=== PATIENT | male | born 1955 | race Caucasian/White ===

== ENCOUNTER 2017-01-25 19:04 | Inpatient (IN) | payer OTHER ==
[~2017-01-25] VITALS: Ht 186.7 cm; Wt 82.6 kg
[2017-01-25] MEDS ORDERED: SOD CHLORIDE 0.9% 1,000 ML IV STA (19:28)
[2017-01-25 19:39] LABS: ADD SCAN DIFF NO
[2017-01-25 19:41] LABS: ABNORMAL IP MESSAGE 1; BASOPHILS % 0.1 % (0.0-2.0); EOSINOPHILS # 0.5 10^3/ul (0.0-0.5); EOSINOPHILS % 3.8 % (0.0-7.0); HEMATOCRIT 12.2 % (42.0-52.0); LYMPHOCYTES % 24.3 % (15.0-51.0); MEAN CORPUSCULAR HEMOGLOBIN 27.6 pg (29.0-33.0); MEAN CORPUSCULAR HGB CONC 30.3 g/dl (32.0-37.0); MEAN PLATELET VOLUME 9.6 fl (7.4-10.4); MONOCYTE # 0.8 10^3/ul (0.3-0.9); MONOCYTES % 6.9 % (0.0-11.0); NEUTROPHIL # 7.7 10^3/ul (1.6-7.5); NEUTROPHILS % 63.3 % (39.0-77.0); NUCLEATED RED BLOOD CELLS # 0.1 10^3/ul (0.0-0.0); NUCLEATED RED BLOOD CELLS% 0.7 /100WBC (0.0-0.0); PLATELET COUNT 401 10^3/UL (140-415); RED BLOOD COUNT 1.34 10^6/ul (4.70-6.10); RED CELL DISTRIBUTION WIDTH 16.2 % (11.5-14.5); WHITE BLOOD COUNT 12.2 10^3/ul (4.8-10.8)
[2017-01-25 19:51] LABS: ALANINE AMINOTRANSFERASE 34 IU/L (13-69); ALBUMIN 3.7 g/dl (3.3-4.9); ALBUMIN/GLOBULIN RATIO 1.68; ALKALINE PHOSPHATASE 54 IU/L (42-121); ANION GAP 12 (8-16); ASPARTATE AMINO TRANSFERASE 18 IU/L (15-46); BLOOD UREA NITROGEN 43 mg/dl (7-20); CALCIUM 8.2 mg/dl (8.4-10.2); CARBON DIOXIDE 19 mmol/L (21-31); CHLORIDE 108 mmol/L (97-110); CREATININE 1.42 mg/dl (0.61-1.24); GLUCOSE 101 mg/dl (70-220); SODIUM 134 mmol/L (135-144); TOTAL PROTEIN 5.9 g/dl (6.1-8.1)
[2017-01-25 19:57] LABS: INR 1.17; PT RATIO 1.2
[2017-01-25 19:58] LABS: HEMOGLOBIN 3.7 g/dl (14.0-18.0); PARTIAL THROMBOPLASTIN TIME 31.1 Sec (25.0-35.0)
[2017-01-25 20:03] LABS: B-TYPE NATRIURETIC PEPTIDE 1080 PG/ML (0-125)
[2017-01-25 20:06] LABS: TROPONIN-I < 0.012 ng/ml (0.00-0.12)
--- NOTE | 2017-01-25 20:10 | RADRPT ---
PROCEDURE: XR Chest. CLINICAL INDICATION: Chest pain. Upper GI bleed. TECHNIQUE: Single frontal view. COMPARISON: None. FINDINGS: There is mild left basilar atelectasis. The left inferior lateral lung is not included on the image . The visualized portions of the lungs are otherwise clear. The heart size is normal. There is no pleural effusion. There is no pneumothorax. IMPRESSION: 1. Limited study as described above. 2. Mild left basilar atelectasis. RPTAT: QQ .Cecil Mcgee MD, MD Date Time Electronically viewed and signed by .Cecil Mcgee MD, on 01/25/2017 20:10 .R/
[2017-01-25 20:25] LABS: PLATELET ESTIMATE PLT APPEAR ADEQUATE
--- NOTE | 2017-01-25 21:51 | ERA ---
ER Documentation Chief Complaint Date/Time DATE: 01/25/17 TIME: 21:41 Chief Complaint SOB and palpitations today HPI 61-year-old man states he has been feeling weak for the last 4-5 days and developed gradual onset shortness of breath over the same duration. He developed palpitations today which lasted for a few minutes so he came here for evaluation. Patient states his stools have been dark recently but denies abdominal pain, no chest pain, no fevers or chills, no blood per rectum, no vomiting or diarrhea. Patient denies recent travel or antibiotic use. ROS All systems reviewed and are negative except as per history of present illness. PMhx/Soc History of alcoholism, last drink 9 months ago, atrial fibrillation History of Surgery: No Anesthesia Reaction: No Hx Neurological Disorder: No Hx Respiratory Disorders: No Hx Cardiac Disorders: Yes (HTN, HYPERLIPIDS) Hx Psychiatric Problems: Yes (DEPRESSION) Hx Miscellaneous Medical Probl: No Hx Alcohol Use: No (FORMER) Hx Substance Use: No Hx Tobacco Use: Yes (PK/DAY) Smoking Status: Current every day smoker FmHx No family history of early coronary artery disease or sudden cardiac . Family History: No diabetes Physical Exam Vitals Vital Signs Date Time Temp Pulse Resp B/P Pulse Ox O2 Delivery O2 Flow Rate FiO2 01/25/17 21:10 98.0 78 17 77/43 100 01/25/17 20:55 98.0 79 18 78/37 100 01/25/17 19:12 98.2 59 18 80/47 82 Physical Exam GENERAL: Well-developed, appears dehydrated, nontoxic in appearance, afebrile HEENT: Dry mucous membranes, pale conjunctiva, no cervical spine deformity, no jaundice or icterus NEURO: Alert and oriented 3, cranial nerves II through XII intact bilaterally, pupils equal round reactive to light, no focal deficits or facial asymmetry, sensation intact distally Strength 5/5 in upper and lower extremities bilaterally CARDIAC: Regular rate and rhythm, no murmurs rubs or gallops LUNGS: Clear bilaterally no wheezing crackles or stridor ABDOMEN: Soft nontender, no guarding, no rigidity, no rebound, no psoas sign no obturator sign. SKIN: Warm and dry to touch, no abrasions, contusions, or hematomas, no lacerations, no ecchymosis, no target lesions, and without ulcers EXTREMITIES: No clubbing cyanosis or edema, calves are bilaterally symmetrical, no Homans sign, no popliteal cord sign. Distal pulses equal and bilateral PSYCH: Normal affect without agitation or irritability Result Diagram: 01/25/17192401/25/171924 Results 24 hrs Laboratory Tests Test 01/25/17 19:25 White Blood Count 12.210^3/ul Red Blood Count 1.3410^6/ul Hemoglobin 3.7g/dl Hematocrit 12.2% Mean Corpuscular Volume 91.0fl Mean Corpuscular Hemoglobin 27.6pg Mean Corpuscular Hemoglobin Concent 30.3g/dl Red Cell Distribution Width 16.2% Platelet Count 45970^3/UL Mean Platelet Volume 9.6fl Neutrophils % 63.3% Lymphocytes % 24.3% Monocytes % 6.9% Eosinophils % 3.8% Basophils % 0.1% Nucleated Red Blood Cells % 0.7/100WBC Neutrophils # 7.710^3/ul Lymphocytes # 3.010^3/ul Monocytes # 0.810^3/ul Eosinophils # 0.510^3/ul Basophils # 0.010^3/ul Nucleated Red Blood Cells # 0.110^3/ul Differential Comment AUTO w/SCAN Platelet Estimate PLT APPEAR ADEQUATE Prothrombin Time 15.0Sec Prothrombin Time Ratio 1.2 INR International Normalized Ratio 1.17 Activated Partial Thromboplast Time 31.1Sec Sodium Level 134mmol/L Potassium Level 5.0mmol/L Chloride Level 108mmol/L Carbon Dioxide Level 19mmol/L Anion Gap 12 Blood Urea Nitrogen 43mg/dl Creatinine 1.42mg/dl Glucose Level 101mg/dl Calcium Level 8.2mg/dl Total Bilirubin 0.0mg/dl Direct Bilirubin 0.00mg/dl Indirect Bilirubin 0.0mg/dl Aspartate Amino Transf (AST/SGOT) 18IU/L Alanine Aminotransferase (ALT/SGPT) 34IU/L Alkaline Phosphatase 54IU/L Troponin I < 0.012ng/ml B-Type Natriuretic Peptide 1080PG/ML Total Protein 5.9g/dl Albumin 3.7g/dl Globulin 2.20g/dl Albumin/Globulin Ratio 1.68 Lipase 219U/L Current Medications Medications (Trade) Dose Ordered Sig/Dina Route PRN Reason Start Time Stop Time Status Last Admin Dose Admin Sodium Chloride (NS) 1,000 ml @ 1,000 mls/hr Q1H STAT IV 01/25/17 19:28 01/25/17 20:27 DC 01/25/17 19:36 Procedures/MDM IV line was established patient was placed on alarm security or surveillance monitor rhythm strip revealed a sinus rhythm at about 80 bpm with upright P and T waves. Patient was afebrile but hypotensive and dehydrated initially. I ordered 2 L normal saline intravenously for initial hypotension with a systolic blood pressure of 80 mmHg. Also suspected severe anemia so I ordered type and screen and transfusion of 2 units PRBCs IV over 4 hours. EKG performed, read by me: 81 bpm, normal sinus rhythm, normal axis, no acute ST segment changes, narrow QRS complex, with good R-wave progression in precordial leads. One AP view of the chest performed, read by me reveals no acute infiltrates, normal mediastinum, sharp costophrenic and cardiac borders, no air under the diaphragm. Otherwise unremarkable chest x-ray. CBC revealed severe anemia with a hemoglobin of 3.7, electrolytes revealed dehydration with a BUN/creatinine of 43/1.4, liver function tests were normal, troponin was negative. BNP is elevated at about 1000 and, nonspecific. Given the level of anemia and initial hypotension I ordered emergent transfusion with O- blood. Patient gave both verbal and written consent. Critical Care: Time: 35 minutes, this was time separate from other billable procedures. Treatments/Evaluations: Close monitoring and treatment of unstable vital signs, cardiorespiratory, and neurologic status, while maintaining tight balance of fluid, respiratory, and cardiac interventions. Patient's mental status remains normal he has no complaints at this time and his blood pressure has improved. He will be admitted to telemetry setting for continued IV blood transfusion and possible GI consultation. Departure Diagnosis: Primary Impression: Severe anemia Additional Impressions: Dehydration Gastrointestinal hemorrhage associated with acute gastritis Hypotension Qualified Code: I95.9 - Hypotension, unspecified hypotension type Condition: Serious JANETT CHAPPELL MD Jan 25, 2017 21:51
[2017-01-25] MEDS ORDERED: SOD CHLORIDE 0.9% 1,000 ML IV ONE (23:00)
[2017-01-25] MEDS ORDERED: DIPHENHYDRAMINE 50 MG CAP PO ONE (23:00)
[2017-01-25] MEDS ORDERED: LORAZEPAM 2 MG INJ IV ONE (23:30)
[2017-01-26 03:50] VITALS: TEMP 98.1
[2017-01-26] MEDS ORDERED: DEXTROSE 5%-0.45% NACL 1,000 ML IV SCH (07:32)
[2017-01-26 07:52] LABS: ADD SCAN DIFF NO
[2017-01-26 07:56] LABS: ABNORMAL IP MESSAGE 1; HEMATOCRIT 19.1 % (42.0-52.0); MEAN CORPUSCULAR HEMOGLOBIN 28.6 pg (29.0-33.0); MEAN CORPUSCULAR HGB CONC 32.5 g/dl (32.0-37.0); MEAN PLATELET VOLUME 9.9 fl (7.4-10.4); PLATELET COUNT 334 10^3/UL (140-415); RED BLOOD COUNT 2.17 10^6/ul (4.70-6.10); RED CELL DISTRIBUTION WIDTH 16.5 % (11.5-14.5)
[2017-01-26] MEDS ORDERED: ONDANSETRON 4 MG INJ IV PRN (08:00)
[2017-01-26] MEDS ORDERED: morphine 2 MG INJ IV PRN (08:00)
[2017-01-26] MEDS ORDERED: NACL 0.9% 3 ML SYG IV SCH (08:00)
[2017-01-26] MEDS ORDERED: DOCUSATE SODIUM 100 MG CAP PO PRN (08:00)
[2017-01-26] MEDS ORDERED: HYDROCODONE/APAP (5/325) TAB PO PRN (08:00)
[2017-01-26] MEDS ORDERED: ACETAMINOPHEN 325 MG TAB PO PRN (08:00)
[2017-01-26] MEDS ORDERED: ZOLPIDEM 5 MG TAB PO PRN (08:00)
[2017-01-26 08:08] LABS: HEMOGLOBIN 6.2 g/dl (14.0-18.0)
[2017-01-26] MEDS ORDERED: SOD CHLORIDE 0.9% 250 ML IV* ONE (08:35)
[2017-01-26] MEDS ORDERED: FUROSEMIDE 40 MG INJ IV SCH (09:00)
[2017-01-26] MEDS: PANTOPRAZOLE 40 MG INJ IV SCH ×2 (09:45→20:27)
[2017-01-26 10:16] LABS: ANISOCYTOSIS 2+; BASOPHIL # 0.1 10^3/ul (0.0-0.1); EOSINOPHILS # 0.3 10^3/ul (0.0-0.5); LYMPHOCYTES # 3.3 10^3/ul (0.8-2.9); MICROCYTOSIS 1+; MONOCYTE # 0.4 10^3/ul (0.3-0.9); NEUTROPHIL # 6.8 10^3/ul (1.6-7.5); PLATELET ESTIMATE PLT APPEAR ADEQUATE; POLYCHROMASIA 3+
[2017-01-26 12:11] LABS: ADD SCAN DIFF NO
[2017-01-26 12:13] LABS: BASOPHIL # 0.1 10^3/ul (0.0-0.1); BASOPHILS % 0.5 % (0.0-2.0); EOSINOPHILS # 0.4 10^3/ul (0.0-0.5); HEMATOCRIT 22.4 % (42.0-52.0); HEMOGLOBIN 7.5 g/dl (14.0-18.0); LYMPHOCYTES # 2.3 10^3/ul (0.8-2.9); LYMPHOCYTES % 24.1 % (15.0-51.0); MEAN CORPUSCULAR HEMOGLOBIN 29.2 pg (29.0-33.0); MEAN CORPUSCULAR HGB CONC 33.5 g/dl (32.0-37.0); MEAN CORPUSCULAR VOLUME 87.2 fl (82.0-101.0); MEAN PLATELET VOLUME 9.9 fl (7.4-10.4); MONOCYTE # 0.7 10^3/ul (0.3-0.9); MONOCYTES % 7.1 % (0.0-11.0); NEUTROPHILS % 62.8 % (39.0-77.0); NUCLEATED RED BLOOD CELLS # 0.1 10^3/ul (0.0-0.0); NUCLEATED RED BLOOD CELLS% 0.9 /100WBC (0.0-0.0); PLATELET COUNT 353 10^3/UL (140-415); RED BLOOD COUNT 2.57 10^6/ul (4.70-6.10); RED CELL DISTRIBUTION WIDTH 16.4 % (11.5-14.5); WHITE BLOOD COUNT 9.6 10^3/ul (4.8-10.8)
[2017-01-26 12:25] LABS: IRON 30 ug/dl (35-150)
[2017-01-26 12:34] LABS: TOTAL IRON BINDING CAPACITY 438 ug/dl (241-421)
[2017-01-26 13:15] VITALS: BP 116/60; PULSE 80; RESP 19
[2017-01-26 13:48] LABS: HEMATOCRIT 24.2 % (42.0-52.0); HEMOGLOBIN 7.8 g/dl (14.0-18.0)
[2017-01-26 13:57] LABS: FOLATE 8.4 ng/ml (2.8-20.0)
[2017-01-26 14:24] VITALS: Ht 186.7 cm; Wt 82.6 kg
[2017-01-26] MEDS ORDERED: RIVA20TA PO (14:44)
[2017-01-26] MEDS ORDERED: ASPI-664 PO (14:44)
[2017-01-26] MEDS ORDERED: SPIR25TA PO (14:44)
[2017-01-26] MEDS ORDERED: ATOR80TA75 PO (14:45)
[2017-01-26] MEDS ORDERED: METO200T4 PO (14:45)
[2017-01-26] MEDS ORDERED: LISI20TA11 PO (14:45)
--- NOTE | 2017-01-26 15:15 | PN ---
Date/Time of Note Date/Time of Note DATE: 01/26/17 TIME: 15:13 Assessment/Plan VTE Prophylaxis VTE Prophylaxis Intervention: SCD's Assessment/Plan Assessment/Plan 61 yo M with pmhx AFib, HTN presents with dark stools found to have significant anemia to 3s. PLAN GI eval for EGD hgb >7 sp 4 units pRBCs goal for hgb is 7 given no active cardiac issues hold asa and xarelto HTN: cont home BP meds minimize PO pending GI eval Subjective 24 Hr Interval Summary Free Text/Dictation pt seen standing in the ER, shouting at charge nurse about poor cell phone reception agent Exam/Review of Systems Vital Signs Vitals Vital Signs Date Time Temp Pulse Resp B/P Pulse Ox O2 Delivery O2 Flow Rate FiO2 01/26/17 13:15 98.4 80 19 116/60 100 Room Air Intake and Output 01/25/17 01/25/17 01/26/17 15:00 23:00 07:00 Intake Total 350 ml Output Total 200 ml Balance 150 ml Exam nad, ambulating without difficulty no gross abd distension no LE edema no rashes resp nonlabored Results Result Diagram: 01/26/17 1315 01/25/17 1925 Results 24 hrs Laboratory Tests Test 01/25/17 19:25 01/26/17 07:30 01/26/17 11:15 01/26/17 13:15 White Blood Count 12.2 H 11.0 H 9.6 Red Blood Count 1.34 L 2.17 #L 2.57 L Hemoglobin 3.7 *L 6.2 #*L 7.5 #L 7.8 L Hematocrit 12.2 L 19.1 #L 22.4 L 24.2 L Mean Corpuscular Volume 91.0 88.0 87.2 Mean Corpuscular Hemoglobin 27.6 L 28.6 L 29.2 Mean Corpuscular Hemoglobin Concent 30.3 L 32.5 33.5 Red Cell Distribution Width 16.2 H 16.5 H 16.4 H Platelet Count 401 334 353 Mean Platelet Volume 9.6 9.9 9.9 Neutrophils % 63.3 62.0 62.8 Lymphocytes % 24.3 30.0 24.1 Monocytes % 6.9 4.0 7.1 Eosinophils % 3.8 3.0 4.0 Basophils % 0.1 1.0 0.5 Nucleated Red Blood Cells % 0.7 H 0.9 H Neutrophils # 7.7 H 6.8 6.0 Lymphocytes # 3.0 H 3.3 H 2.3 Monocytes # 0.8 0.4 0.7 Eosinophils # 0.5 0.3 0.4 Basophils # 0.0 0.1 0.1 Nucleated Red Blood Cells # 0.1 H 0.1 H Differential Comment AUTO w/SCAN Platelet Estimate PLT APPEAR ADEQUATE PLT APPEAR ADEQUATE Prothrombin Time 15.0 H Prothrombin Time Ratio 1.2 INR International Normalized Ratio 1.17 Activated Partial Thromboplast Time 31.1 Sodium Level 134 L Potassium Level 5.0 Chloride Level 108 Carbon Dioxide Level 19 L Anion Gap 12 Blood Urea Nitrogen 43 H Creatinine 1.42 H Glucose Level 101 Calcium Level 8.2 L Total Bilirubin 0.0 L Direct Bilirubin 0.00 Indirect Bilirubin 0.0 Aspartate Amino Transf (AST/SGOT) 18 Alanine Aminotransferase (ALT/SGPT) 34 Alkaline Phosphatase 54 Troponin I < 0.012 B-Type Natriuretic Peptide 1080 H Total Protein 5.9 L Albumin 3.7 Globulin 2.20 Albumin/Globulin Ratio 1.68 Lipase 219 Polychromasia 3+ Anisocytosis 2+ Microcytosis 1+ Iron Level 30 L Total Iron Binding Capacity 438 H Percent Iron Saturation 7 L Vitamin B12 Level 516 Folate 8.4 Medications Medications Current Medications Ondansetron HCl (Zofran Inj) 4 mg Q6H PRN IV NAUSEA AND/OR VOMITING; Start at 08:00 Acetaminophen (Tylenol Tab) 650 mg Q6H PRN PO PAIN LEVEL 1-3 OR FEVER; Start at 08:00 Acetaminophen/ Hydrocodone Bitart ([place] (5/325)) 1 tab Q6H PRN PO MODERATE PAIN LEVEL 4-6; Start 01/26/17 at 08:00 Morphine Sulfate (morphine) 2 mg Q4H PRN IV SEVERE PAIN LEVEL 7-10; Start 01/26 at 08:00 Docusate Sodium (Colace) 100 mg Q12H PRN PO CONSTIPATION; Start 01/26/17 at 08: 00 Zolpidem Tartrate (Ambien) 5 mg QHS PRN PO SLEEP; Start 01/26/17 at 08:00 Pantoprazole (Protonix Iv) 40 mg BID IV Last administered on 01/26/17t 09:45; Admin Dose 40 MG; Start 01/26/17 at 09:00 Furosemide (Lasix) 20 mg ONCE IV Last administered on 01/26/17 09:40; Admin Dose 20 MG; Start 01/26/17 at 09:00; Stop 01/27/17 at 08:59 Atorvastatin Calcium (Lipitor) 80 mg QHS PO ; Start 01/26/17 at 21:00; Status UNV Lisinopril (Zestril) 20 mg DAILY PO ; Start 01/27/17 at 09:00; Status UNV Metoprolol Succinate (Toprol Xl) 200 mg DAILY PO ; Start 01/27/17 at 09:00; Status UNV Spironolactone (Aldactone) 25 mg DAILY PO ; Start 01/27/17 at 09:00; Status UNV AVELINO MARX MD Jan 26, 2017 15:15
[2017-01-26] MEDS: SPIRONOLACTONE 25 MG TAB PO SCH (16:20)
[2017-01-26] MEDS: METOPROLOL (XL) 100 MG TAB PO SCH (16:20)
[2017-01-26] MEDS ORDERED: MAGNESIUM CITRATE 300 ML BTL PO ONE (17:30)
[2017-01-26] MEDS ORDERED: POLYETHYLENE GLYCOL 3350 119 GM POWDER PO ONE (18:30)
--- NOTE | 2017-01-26 19:45 | CONS ---
Date/Time of Note Date/Time of Note DATE: 01/26/17 TIME: 19:42 Assessment/Plan Assessment/Plan Additional Assessment/Plan Assessment: * Severe anemia * Rule out GI bleeding * Therapeutic anticoagulation * Hypertension Plan: * EGD and colonoscopy tomorrow. The patient was informed in detail the nature of the procedures including risks, benefits and alternatives. We also emphasized the need for cooperation with the preparation to be able to accomplish this examinations tomorrow. The tentative schedule is we are on the "wish list" for tomorrow around 1 PM if this does not materialize she will have to be late afternoon. Again the patient has been clearly made aware Consultation Date/Type/Reason Admit Date/Time Jan 26, 2017 at 09:01 Social History Smoking Status: Current every day smoker Exam/Review of Systems Vital Signs Vitals Vital Signs Date Time Temp Pulse Resp B/P Pulse Ox O2 Delivery O2 Flow Rate FiO2 01/26/17 13:15 98.4 80 19 116/60 100 Room Air Intake and Output 01/25/17 01/25/17 01/26/17 15:00 23:00 07:00 Intake Total 350 ml Output Total 200 ml Balance 150 ml Results Result Diagram: 01/26/17 1315 01/25/17 1925 Results 24 hrs Laboratory Tests Test 01/26/17 07:30 01/26/17 11:15 01/26/17 13:15 White Blood Count 11.0 H 9.6 Red Blood Count 2.17 #L 2.57 L Hemoglobin 6.2 #*L 7.5 #L 7.8 L Hematocrit 19.1 #L 22.4 L 24.2 L Mean Corpuscular Volume 88.0 87.2 Mean Corpuscular Hemoglobin 28.6 L 29.2 Mean Corpuscular Hemoglobin Concent 32.5 33.5 Red Cell Distribution Width 16.5 H 16.4 H Platelet Count 334 353 Mean Platelet Volume 9.9 9.9 Neutrophils % 62.0 62.8 Lymphocytes % 30.0 24.1 Monocytes % 4.0 7.1 Eosinophils % 3.0 4.0 Basophils % 1.0 0.5 Neutrophils # 6.8 6.0 Lymphocytes # 3.3 H 2.3 Monocytes # 0.4 0.7 Eosinophils # 0.3 0.4 Basophils # 0.1 0.1 Platelet Estimate PLT APPEAR ADEQUATE Polychromasia 3+ Anisocytosis 2+ Microcytosis 1+ Nucleated Red Blood Cells % 0.9 H Nucleated Red Blood Cells # 0.1 H Iron Level 30 L Total Iron Binding Capacity 438 H Percent Iron Saturation 7 L Vitamin B12 Level 516 Folate 8.4 Medications Medications Current Medications Ondansetron HCl (Zofran Inj) 4 mg Q6H PRN IV NAUSEA AND/OR VOMITING; Start at 08:00 Acetaminophen (Tylenol Tab) 650 mg Q6H PRN PO PAIN LEVEL 1-3 OR FEVER; Start at 08:00 Acetaminophen/ Hydrocodone Bitart ([place] (5/325)) 1 tab Q6H PRN PO MODERATE PAIN LEVEL 4-6; Start 01/26/17 at 08:00 Morphine Sulfate (morphine) 2 mg Q4H PRN IV SEVERE PAIN LEVEL 7-10; Start 01/26 at 08:00 Docusate Sodium (Colace) 100 mg Q12H PRN PO CONSTIPATION; Start 01/26/17 at 08: 00 Zolpidem Tartrate (Ambien) 5 mg QHS PRN PO SLEEP; Start 01/26/17 at 08:00 Pantoprazole (Protonix Iv) 40 mg BID IV Last administered on 01/26/17 09:45; Admin Dose 40 MG; Start 01/26/17 at 09:00 Furosemide (Lasix) 20 mg ONCE IV Last administered on 01/26/17 09:40; Admin Dose 20 MG; Start 01/26/17 at 09:00; Stop 01/27/17 at 08:59 Atorvastatin Calcium (Lipitor) 80 mg QHS PO ; Start 01/26/17 at 21:00 Lisinopril (Zestril) 20 mg DAILY PO ; Start 01/27/17 at 09:00 Spironolactone (Aldactone) 25 mg DAILY PO Last administered on 01/26/17 16:20 ; Admin Dose 25 MG; Start 01/26/17 at 16:00 Metoprolol Succinate (Toprol Xl) 200 mg DAILY PO Last administered on 16:20; Admin Dose 200 MG; Start 01/26/17 at 17:00 LALA ZAPATA MD Jan 26, 2017 19:45
[2017-01-26] MEDS ORDERED: BISACODYL (EC) 5 MG TAB PO ONE (20:00)
[2017-01-26 20:06] VITALS: BP 96/52; RESP 18
[2017-01-26 20:58] LABS: ADD SCAN DIFF NO
[2017-01-26 20:59] LABS: BASOPHIL # 0.1 10^3/ul (0.0-0.1); BASOPHILS % 0.6 % (0.0-2.0); EOSINOPHILS # 0.5 10^3/ul (0.0-0.5); EOSINOPHILS % 5.1 % (0.0-7.0); HEMATOCRIT 21.6 % (42.0-52.0); HEMOGLOBIN 7.1 g/dl (14.0-18.0); LYMPHOCYTES # 2.7 10^3/ul (0.8-2.9); LYMPHOCYTES % 29.8 % (15.0-51.0); MEAN CORPUSCULAR HEMOGLOBIN 28.9 pg (29.0-33.0); MEAN CORPUSCULAR HGB CONC 32.9 g/dl (32.0-37.0); MEAN CORPUSCULAR VOLUME 87.8 fl (82.0-101.0); MEAN PLATELET VOLUME 8.9 fl (7.4-10.4); MONOCYTE # 0.7 10^3/ul (0.3-0.9); MONOCYTES % 7.9 % (0.0-11.0); NEUTROPHILS % 55.2 % (39.0-77.0); NUCLEATED RED BLOOD CELLS # 0.1 10^3/ul (0.0-0.0); NUCLEATED RED BLOOD CELLS% 0.9 /100WBC (0.0-0.0); PLATELET COUNT 323 10^3/UL (140-415); RED BLOOD COUNT 2.46 10^6/ul (4.70-6.10); RED CELL DISTRIBUTION WIDTH 16.2 % (11.5-14.5)
[2017-01-26] MEDS ORDERED: ATORVASTATIN 80 MG TAB PO SCH (21:00)
[2017-01-27] VITALS (9 sets, daily range): BP systolic 107–128; BP diastolic 53–70; PULSE 76–84; RESP 11–21
[2017-01-27] MEDS ORDERED: POLYETHYLENE GLYCOL 3350 119 GM POWDER PO ONE (06:00)
[2017-01-27 06:13] LABS: HEMATOCRIT 21.2 % (42.0-52.0)
[2017-01-27 07:23] LABS: INR 1.02; PROTIME 13.4 Sec (12.2-14.2)
[2017-01-27 07:24] LABS: PARTIAL THROMBOPLASTIN TIME 29.3 Sec (25.0-35.0)
[2017-01-27] MEDS ORDERED: BISACODYL (EC) 5 MG TAB PO ONE (08:00)
[2017-01-27] MEDS ORDERED: METOPROLOL (XL) 100 MG TAB PO SCH (09:00)
[2017-01-27] MEDS ORDERED: LISINOPRIL 20 MG TAB PO SCH (09:00)
[2017-01-27] MEDS ORDERED: SPIRONOLACTONE 25 MG TAB PO SCH (09:00)
[2017-01-27] MEDS: METOPROLOL (XL) 100 MG TAB PO SCH (09:00)
[2017-01-27] MEDS: PANTOPRAZOLE 40 MG INJ IV SCH (09:00)
[2017-01-27] MEDS: SPIRONOLACTONE 25 MG TAB PO SCH (09:00)
--- NOTE | 2017-01-27 11:05 | PN ---
Date/Time of Note Date/Time of Note DATE: 01/27/17 TIME: 11:04 Assessment/Plan VTE Prophylaxis VTE Prophylaxis Intervention: SCD's Lines/Catheters IV [facility]from [facility] Saline Lock Urinary Cath still in place: No Assessment/Plan Assessment/Plan 61 yo M with pmhx AFib, HTN presents with dark stools found to have significant anemia to 3s. PLAN EGD/Cscope today transfuse PRN to hgb goal >7 hold asa and xarelto HTN: cont home BP meds discharge pending GI eval Subjective 24 Hr Interval Summary Free Text/Dictation Pt agitated and demanding. States he is hungry. 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 Exam/Review of Systems Vital Signs Vitals Vital Signs Date Time Temp Pulse Resp B/P Pulse Ox O2 Delivery O2 Flow Rate FiO2 01/27/17 08:00 98.0 83 20 107/53 97 01/26/17 13:15 Room Air Intake and Output 01/26/17 01/26/17 01/27/17 15:00 23:00 07:00 Intake Total 1480 ml 500 ml Output Total 2 ml 4 ml Balance 1478 ml 496 ml Exam agitated, laying in bed, frequent shouting no mrg lungs clear abd soft no rashes hgb's reviewed Results Result Diagram: 01/27/17 0511 01/25/171924 Results 24 hrs Laboratory Tests Test 01/26/17 11:15 01/26/17 13:15 01/26/17 20:50 01/27/17 05:11 White Blood Count 9.6 9.0 Red Blood Count 2.57 L 2.46 L Hemoglobin 7.5 #L 7.8 L 7.1 L 7.0 L Hematocrit 22.4 L 24.2 L 21.6 L 21.2 L Mean Corpuscular Volume 87.2 87.8 Mean Corpuscular Hemoglobin 29.2 28.9 L Mean Corpuscular Hemoglobin Concent 33.5 32.9 Red Cell Distribution Width 16.4 H 16.2 H Platelet Count 353 323 Mean Platelet Volume 9.9 8.9 Neutrophils % 62.8 55.2 Lymphocytes % 24.1 29.8 Monocytes % 7.1 7.9 Eosinophils % 4.0 5.1 Basophils % 0.5 0.6 Nucleated Red Blood Cells % 0.9 H 0.9 H Neutrophils # 6.0 5.0 Lymphocytes # 2.3 2.7 Monocytes # 0.7 0.7 Eosinophils # 0.4 0.5 Basophils # 0.1 0.1 Nucleated Red Blood Cells # 0.1 H 0.1 H Iron Level 30 L Total Iron Binding Capacity 438 H Percent Iron Saturation 7 L Vitamin B12 Level 516 Folate 8.4 Prothrombin Time 13.4 Prothrombin Time Ratio 1.0 INR International Normalized Ratio 1.02 Activated Partial Thromboplast Time 29.3 Test 01/27/17 06:26 Lab Scanned Report BLOOD TRANSFUSION Medications Medications Current Medications Ondansetron HCl (Zofran Inj) 4 mg Q6H PRN IV NAUSEA AND/OR VOMITING; Start at 08:00 Acetaminophen (Tylenol Tab) 650 mg Q6H PRN PO PAIN LEVEL 1-3 OR FEVER; Start at 08:00 Acetaminophen/ Hydrocodone Bitart ([place] (5/325)) 1 tab Q6H PRN PO MODERATE PAIN LEVEL 4-6; Start 01/26/17 at 08:00 Morphine Sulfate (morphine) 2 mg Q4H PRN IV SEVERE PAIN LEVEL 7-10; Start 01/26 at 08:00 Docusate Sodium (Colace) 100 mg Q12H PRN PO CONSTIPATION; Start 01/26/17 at 08: 00 Zolpidem Tartrate (Ambien) 5 mg QHS PRN PO SLEEP Last administered on 20:25; Admin Dose 5 MG; Start 01/26/17 at 08:00 Pantoprazole (Protonix Iv) 40 mg BID IV Last administered on 01/26/17 20:27; Admin Dose 40 MG; Start 01/26/17 at 09:00 Atorvastatin Calcium (Lipitor) 80 mg QHS PO Last administered on 01/26/17 20: 27; Admin Dose 80 MG; Start 01/26/17 at 21:00 Lisinopril (Zestril) 20 mg DAILY PO ; Start 01/27/17 at 09:00 Spironolactone (Aldactone) 25 mg DAILY PO Last administered on 01/26/17 16:20 ; Admin Dose 25 MG; Start 01/26/17 at 16:00 Metoprolol Succinate (Toprol Xl) 200 mg DAILY PO Last administered on t 16:20; Admin Dose 200 MG; Start 01/26/17 at 17:00 AVELINO MARX MD Jan 27, 2017 11:05
--- NOTE | 2017-01-27 13:15 | PN ---
Date/Time of Note Date/Time of Note DATE: 01/27/17 TIME: 13:07 Assessment/Plan VTE Prophylaxis VTE Prophylaxis Intervention: ambulation Lines/Catheters IV [facility] Saline Lock Urinary Cath still in place: No Assessment/Plan Assessment/Plan Assessment * Anemia Acute vs chronic Upper GI vs lower GI bleed * Aggressive behavior Plan * continue plan of management Subjective 24 Hr Interval Summary Free Text/Dictation * Course reviewed with RN * Patient seen and examined * Patients complaining that he needs the procedure done but rescheduled at 1800 * Explained the plan to patient but refused to listen * Dr Barraza made aware Exam/Review of Systems Vital Signs Vitals Vital Signs Date Time Temp Pulse Resp B/P Pulse Ox O2 Delivery O2 Flow Rate FiO2 01/27/17 08:00 98.0 83 20 107/53 97 01/26/17 13:15 Room Air Intake and Output 01/26/17 01/26/17 01/27/17 15:00 23:00 07:00 Intake Total 1480 ml 500 ml Output Total 2 ml 4 ml Balance 1478 ml 496 ml Exam Constitutional: alert Neck: non-tender, supple Respiratory: clear to auscultation, normal air movement Cardiovascular: nl pulses, regular rate and rhythm Gastrointestinal: nl liver, spleen, non-tender, soft Musculoskeletal: nl extremities to inspection Extremities: normal pulses Skin: nl turgor, No rash or lesions Lymph: nl lymph nodes Results Result Diagram: 01/27/17 0511 01/25/171924 Results 24 hrs Laboratory Tests Test 01/26/17 13:15 01/26/17 20:50 01/27/17 05:11 01/27/17 06:26 Hemoglobin 7.8 L 7.1 L 7.0 L Hematocrit 24.2 L 21.6 L 21.2 L White Blood Count 9.0 Red Blood Count 2.46 L Mean Corpuscular Volume 87.8 Mean Corpuscular Hemoglobin 28.9 L Mean Corpuscular Hemoglobin Concent 32.9 Red Cell Distribution Width 16.2 H Platelet Count 323 Mean Platelet Volume 8.9 Neutrophils % 55.2 Lymphocytes % 29.8 Monocytes % 7.9 Eosinophils % 5.1 Basophils % 0.6 Nucleated Red Blood Cells % 0.9 H Neutrophils # 5.0 Lymphocytes # 2.7 Monocytes # 0.7 Eosinophils # 0.5 Basophils # 0.1 Nucleated Red Blood Cells # 0.1 H Prothrombin Time 13.4 Prothrombin Time Ratio 1.0 INR International Normalized Ratio 1.02 Activated Partial Thromboplast Time 29.3 Lab Scanned Report BLOOD TRANSFUSION Medications Medications Current Medications Ondansetron HCl (Zofran Inj) 4 mg Q6H PRN IV NAUSEA AND/OR VOMITING; Start at 08:00 Acetaminophen (Tylenol Tab) 650 mg Q6H PRN PO PAIN LEVEL 1-3 OR FEVER; Start at 08:00 Acetaminophen/ Hydrocodone Bitart ([place] (5/325)) 1 tab Q6H PRN PO MODERATE PAIN LEVEL 4-6; Start 01/26/17 at 08:00 Morphine Sulfate (morphine) 2 mg Q4H PRN IV SEVERE PAIN LEVEL 7-10; Start 01/26 at 08:00 Docusate Sodium (Colace) 100 mg Q12H PRN PO CONSTIPATION; Start 01/26/17 at 08: 00 Zolpidem Tartrate (Ambien) 5 mg QHS PRN PO SLEEP Last administered on 20:25; Admin Dose 5 MG; Start 01/26/17 at 08:00 Pantoprazole (Protonix Iv) 40 mg BID IV Last administered on 01/26/17 20:27; Admin Dose 40 MG; Start 01/26/17 at 09:00 Atorvastatin Calcium (Lipitor) 80 mg QHS PO Last administered on 01/26/17 20: 27; Admin Dose 80 MG; Start 01/26/17 at 21:00 Lisinopril (Zestril) 20 mg DAILY PO ; Start 01/27/17 at 09:00 Spironolactone (Aldactone) 25 mg DAILY PO Last administered on 01/26/17 16:20 ; Admin Dose 25 MG; Start 01/26/17 at 16:00 Metoprolol Succinate (Toprol Xl) 200 mg DAILY PO Last administered on 16:20; Admin Dose 200 MG; Start 01/26/17 at 17:00 KELLEN MOORE NP Jan 27, 2017 13:14
[2017-01-27] MEDS ORDERED: PROPOFOL 20 ML ONE (18:26)
[2017-01-27] MEDS ORDERED: LIDOCAINE 2% (SDV) 5 ML INJ ONE (18:26)
[2017-01-27] MEDS ORDERED: FENTAnyl 50 MCG/ML VIAL ONE (18:26)
[2017-01-27] MEDS ORDERED: morphine (1 MG/ML) 10ML SYRINGE IV PRN ×3 (19:00)
[2017-01-27] MEDS ORDERED: OXYCODONE/ACETAMINOPHEN (5/325) TAB PO PRN ×2 (19:00)
--- NOTE | 2017-01-28 16:24 | DS ---
Date/Time of Note Date/Time of Note DATE: 01/28/17 TIME: 16:23 Discharge Summary Admission/Discharge Info Admit Date/Time Jan 26, 2017 at 09:01 Discharge Date/Time Jan 27, 2017 at 20:11 Patient Condition: Guarded Consults gastroenterology Procedures EGD 01.27, results unknown at time of this summary Hx of Present Illness 61 yo M with pmhx AFib, HTN presents with dark stools found to have significant anemia to 3s. Hospital Course Pt received 5 units pRBCs, hgb improved to the 7s. Pt underwent EGD .. Results not yet dictated at time of this summary. Following his EGD, pt left the hospital AMA. No med rec could be done. Pt likely should not resume his Xarelto. Home Meds Reported Medications Lisinopril* (Lisinopril*) 20 Mg Tablet, 20 MG PO DAILY, #30 TAB 01/26/17 Atorvastatin* (Atorvastatin*) 80 Mg Tablet, 80 MG PO QHS, #30 TAB 01/26/17 Metoprolol Succinate* (Toprol XL*) 200 Mg Tab.sr.24h, 200 MG PO DAILY, #30 TAB 01/26/17 Rivaroxaban* (Xarelto*) 20 Mg Tablet, 20 MG PO WITH DINNER, TAB 01/26/17 Aspirin* (Aspirin* EC) 81 Mg Tablet.dr, 81 MG PO DAILY, TAB 01/26/17 Spironolactone* (Aldactone*) 25 Mg Tablet, 25 MG PO DAILY, #30 TAB 01/26/17 Primary Care Provider Not On Staff Doctor AVELINO MARX MD Jan 28, 2017 16:23
--- NOTE | 2017-01-28 18:41 | OPR ---
Date/Time of Note Date/Time of Note DATE: 01/28/17 TIME: 18:39 Operative Report Preoperative Diagnosis Severe unexplained anemia Postoperative Diagnosis * 3 mm polyp sigmoid colon. Ablated * Moderate-sized internal hemorrhoids. * Otherwise normal colonoscopy to cecum Operation/Procedure Performed Colonoscopy with polyp ablation Surgeon: LALA ZAPATA MD Anesthesia: MAC Estimated Blood Loss: none Specimens Sigmoid colon polyp Grafts/Implants None Complications: None LALA ZAPATA MD Jan 28, 2017 18:40
--- NOTE | 2017-01-28 18:42 | OPR ---
Date/Time of Note Date/Time of Note DATE: 01/28/17 TIME: 18:41 Operative Report Preoperative Diagnosis Severe unexplained anemia Postoperative Diagnosis * Severe ulcerated esophagitis * Moderate gastritis. Rule out H. pylori infection. Biopsies obtained Operation/Procedure Performed EGD with biopsies Surgeon: LALA ZAPATA MD Anesthesia: MAC Estimated Blood Loss: none Specimens Gastric body and antrum Grafts/Implants None Complications: None LALA ZAPATA MD Jan 28, 2017 18:41
== END 2017-01-27 20:11 | disposition left against medical advice (07) | DRG 812 ==
LOC: E/R 19:04 → PP2 01-26 09:01
PROVIDERS: ADMIT Internal Medicine; ATTEND Internal Medicine
PROC: 30233N1 Transfusion of Nonautologous Red Blood Cells into Peripheral Vein, Percutaneous Approach (ICD-10-PCS; 2017-01-26)
PROC: 30233K1 Transfusion of Nonautologous Frozen Plasma into Peripheral Vein, Percutaneous Approach (ICD-10-PCS; 2017-01-26)
PROC: 0DB68ZX Excision of Stomach, Via Natural or Artificial Opening Endoscopic, Diagnostic (ICD-10-PCS; principal; 2017-01-27 18:30)
PROC: 0D5N8ZZ Destruction of Sigmoid Colon, Via Natural or Artificial Opening Endoscopic (ICD-10-PCS; 2017-01-27 18:30)
DX: D64.9 Anemia, unspecified (principal); K29.50 Unspecified chronic gastritis without bleeding; D12.5 Benign neoplasm of sigmoid colon; K63.5 Polyp of colon; I10 Essential (primary) hypertension; F32.9 Major depressive disorder, single episode, unspecified; I48.2 Chronic atrial fibrillation; E86.0 Dehydration; E78.5 Hyperlipidemia, unspecified; F17.210 Nicotine dependence, cigarettes, uncomplicated; F10.21 Alcohol dependence, in remission; Z79.82 Long term (current) use of aspirin; Z79.02 Long term (current) use of antithrombotics/antiplatelets
CPT/HCPCS: 36415; 36430; 71010; 80053; 82607; 82746; 83540; 83690; 83880; 84484; 85014; 85018; 85025; 85610; 85730; 86644; 86850; 86900; 86901; 86920; 88305; 88312; 93005; 96374; 96375; C9113; J1940; J2060; J3010; J7030; J7040; J7042; P9016; P9059